=== PATIENT | female | born 1955 | race Two or more races ===

== ENCOUNTER 2020-03-18 08:11 | Outpatient (CLI) | payer OTHER ==
[~2020-03-18 08:11] MED LIST: KETO10TA2 PO; NORFLEX100MG PO
== END 2020-03-18 08:16 | disposition home or self-care (01) ==
LOC: SONOGRAMA 08:11
PROVIDERS: ATTEND Pathology Anatomic Pathology & Clinical Pathology
DX: E04.1 Nontoxic single thyroid nodule (principal)

== ENCOUNTER 2020-12-15 06:37 | Day surgery (SDC) | payer OTHER | END 2020-12-15 13:00 | disposition home or self-care (01) | LOC: CIR.AMB 06:37 | PROVIDERS: ATTEND Obstetrics & Gynecology | DX: N84.0 Polyp of corpus uteri (principal); Z20.822 Contact with and (suspected) exposure to COVID-19 ==

== ENCOUNTER 2021-04-28 20:12 | Emergency (ER) | payer OTHER ==
[~2021-04-28] VITALS: Ht 165.1 cm; Wt 82.6 kg
== END 2021-04-28 21:42 | disposition home or self-care (01) ==
LOC: ER 20:12
DX: S42.202A Unspecified fracture of upper end of left humerus, initial encounter for closed fracture (principal); W18.30XA Fall on same level, unspecified, initial encounter; Y92.019 Unspecified place in single-family (private) house as the place of occurrence of the external cause

== ENCOUNTER 2024-07-07 13:39 | Outpatient (CLI) | payer OTHER | END 2024-07-07 13:41 | disposition home or self-care (01) | LOC: SONOGRAMA 13:39 | PROVIDERS: ATTEND Pathology Anatomic Pathology | DX: D34 Benign neoplasm of thyroid gland (principal); E07.89 Other specified disorders of thyroid; E04.1 Nontoxic single thyroid nodule ==